=== PATIENT | male | born 1935 | race Caucasian/White ===

== ENCOUNTER 2019-01-30 08:03 | Inpatient (IN) | payer MEDICARE, OTHER ==
[~2019-01-30] VITALS: Ht 180.3 cm; Wt 82.5 kg
[2019-01-30 08:12] VITALS: Ht 180.3 cm; Wt 82.5 kg
[2019-01-30] MEDS ORDERED: PIPER-TAZO 3.375 GM IV (PMX) 100 ML IVPB STA (08:13)
[2019-01-30] MEDS ORDERED: VANCOMYCIN 1 GM (PMX) 250 ML IVPB STA (08:13)
[2019-01-30] MEDS ORDERED: SODIUM CHLORIDE 0.9% 1L BAG IV* STA (08:13)
[2019-01-30] MEDS ORDERED: IBUPROFEN 800 MG TAB PEG ONE (08:30)
[2019-01-30] MEDS ORDERED: ACETAMINOPHEN 650 MG SUPP PR ONE (08:30)
--- NOTE | 2019-01-30 09:44 | ERD ---
ER Documentation Chief Complaint Chief Complaint FROM SNF W/ SOB AND O2 DESATURATION HPI This is an 83-year-old male with a history of dementia esophagitis BPH recently discharged from [facility] after aspiration pneumonia as the patient had accidentally drank Drano. The patient initially was seen at [facility] emergency department on August 23, 2019 the patient underwent an urgent EGD as he had been intubated on arrival. The patient underwent an EGD after he been transferred to [facility] on December 27, 2018 that showed distal trachea and cranial inflammation. He had a endoscopy performed 48 hours later that showed significant improvement and at that time was extubated. He had been sent to a snf facility where he presented to the emergency department today for respiratory distress. The patient was hypoxic satting 80%. Therefore when EMS arrived they placed the patient on a nonrebreather with a nasal trumpet. They stated his pulse ox improved to 90% but he still appeared to have some difficulty breathing. The patient is not currently on antibiotics. He is unable to provide any history due to his dementia and severe respiratory distress. ROS All systems reviewed and are negative except as per history of present illness. Allergies Allergies: Coded Allergies: No Known Allergy (Unverified , 01/30/19) PMhx/Soc History of Surgery: Yes (G-TUBE) Hx Neurological Disorder: Yes (ALZHEIMERS DEMENTIA, ENCEPHALOPATHY) Hx Respiratory Disorders: Yes (PNEUMOTNITIS, ASPIRATION PNEUMONIA) Hx Cardiac Disorders: Yes (CAD, HTN, ) Hx Miscellaneous Medical Probl: Yes (BPH, ESOPHAGITIS, DYSPHAGIA, GASTRITIS W/ BLEEDING) Smoking Status: Unknown if ever smoked Physical Exam Vitals Vital Signs Date Temp Pulse Resp B/P (MAP) Pulse Ox O2 O2 Flow FiO2 Time Delivery Rate 01/30/19 39.2 08:44 01/30/19 39.2 08:44 01/30/19 98 100 08:38 01/30/19 Non 08:30 Rebreathe r 01/30/19 102.5 93 35 179/60 89 08:12 (99) Physical Exam Constitutional:Well-developed. Well-nourished. Patient severe respiratory distress HEENT:Normocephalic. Atraumatic.Pupils were equal round reactive to light. Moist mucous membranes.No tonsillar exudates. Neck: No nuchal rigidity. No lymphadenopathy. No posterior cervical spine tenderness or step-offs. Respiratory: Tachypneic. Using accessory muscles of respiration. Bilateral rhonchi. Cardiovascular: Tachycardic with regular rhythm.No murmurs. No rubs were appreciated.S1, S2 normal. Distal pulses are palpable 2+ bilaterally. GI: Abdomen was soft. Nontender. Non Distended. No pulsatile abdominal masses or bruits. No rebound. No guarding. Bowel sounds were present and normal. G-tube present. Muscle skeletal: No atrophy of the bilateral lower extremities. Patient did not follow verbal command muscular strength was unable to be tested Skin: Warm to the touch. No petechia, no purpura. No lesions on the palms or the soles of the feet. No maculopapular rash. NEURO: Patient opened eyes in response to pain. Does not follow verbal command. Patient withdrew to pain. Gait not observed. Patient mumbling incompressible sounds Result Diagram: 01/30/19 0825 01/30/19 0825 Results 24 hrs Laboratory Tests Test 01/30/19 08:13 01/30/19 08:25 01/30/19 08:27 Blood Gas Specimen Source Blood arterial Arterial Blood Date Drawn 01/30/2019 8:50:36 AM Arterial Blood pH 7.465 (Temp corrected) Arterial Blood pCO2 37.5 mmhg (Temp correct) Arterial Blood pO2 78.2 mmHG (Temp corrected) Arterial Blood HCO3 26.4 mmol/L Arterial Blood Base Excess 2.6 mmol/L Arterial Blood 95.2 mmHG Oxygen Saturation Artemio Test ACCEPTAB Arterial Blood Gas Right Radial Puncture Site Arterial 0.3 % Blood Carboxyhemoglobin Arterial Blood 0.3 % Methemoglobin Blood Gas A-a O2 127.8 mmHg Differential Oxyhemoglobin Percent 94.6 % Blood Gas Temperature 37.0 C Blood Gas Respiration Rate 20.0 Blood Gas Actual 26 Respiration Rate Blood Gas Modality MASK - BIPAP FiO2 35.0 % Blood Gas Tidal Volume 287.0 mL Blood Gas IPAP/EPAP Ratio 15/5 Blood Gas Notified Whom NZ Blood Gas Notified Time 01/30/2019 9:02:29 AM White Blood Count 18.6 10^3/ul Red Blood Count 3.46 10^6/ul Hemoglobin 9.8 g/dl Hematocrit 32.0 % Mean Corpuscular Volume 92.5 fl Mean Corpuscular Hemoglobin 28.3 pg Mean Corpuscular 30.6 g/dl Hemoglobin Concent Red Cell Distribution Width 14.7 % Platelet Count 342 10^3/UL Mean Platelet Volume 11.2 fl Immature Granulocytes % 0.900 % Neutrophils % 84.3 % Lymphocytes % 8.3 % Monocytes % 5.9 % Eosinophils % 0.2 % Basophils % 0.4 % Nucleated Red Blood Cells % 0.0 /100WBC Immature Granulocytes # 0.160 10^3/ul Neutrophils # 15.7 10^3/ul Lymphocytes # 1.6 10^3/ul Monocytes # 1.1 10^3/ul Eosinophils # 0.0 10^3/ul Basophils # 0.1 10^3/ul Nucleated Red Blood Cells # 0.0 10^3/ul Prothrombin Time 15.3 Sec Prothrombin Time Ratio 1.2 INR International 1.20 Normalized Ratio Activated 35.1 Sec Partial Thromboplast Time Sodium Level 145 mmol/L Potassium Level 4.4 mmol/L Chloride Level 106 mmol/L Carbon Dioxide Level 32 mmol/L Anion Gap 7 Blood Urea Nitrogen 23 mg/dl Creatinine 1.12 mg/dl Est Glomerular Filtrat mL/min Rate mL/min Glucose Level 146 mg/dl Calcium Level 8.8 mg/dl Total Bilirubin 0.2 mg/dl Direct Bilirubin 0.00 mg/dl Indirect Bilirubin 0.2 mg/dl Aspartate Amino 35 IU/L Transf (AST/SGOT) Alanine 24 IU/L Aminotransferase (ALT/SGPT) Alkaline Phosphatase 99 IU/L Troponin I 0.055 ng/ml Total Protein 6.2 g/dl Albumin 2.8 g/dl Globulin 3.40 g/dl Albumin/Globulin Ratio 0.82 Amylase Level 75 U/L Lipase 80 U/L POC Venous Lactate 1.6 mmol/L Current Medications Medications Dose Sig/Damien Start Time Status Last (Trade) Ordered Route PRN Stop Time Admin Dose Reason Admin Sodium 2,400 ml BOLUS OVER 2 01/30/19 DC Chloride HOURS STAT 08:13 (NS) IV* 01/30/19 08:17 Vancomycin 250 ml @ ONCE STAT 01/30/19 HCl 125 mls/hr IVPB 08:13 01/30/19 10:12 Piperacillin 100 ml @ ONCE STAT 01/30/19 DC 01/30/19 Sod/ 200 mls/hr IVPB 08:13 08:45 Tazobactam 01/30/19 08:42 Sod 650 mg ONCE ONCE 01/30/19 DC 01/30/19 Acetaminophen [place] 08:30 08:44 (Tylenol 01/30/19 08:31 Supp) Ibuprofen 800 mg ONCE ONCE 01/30/19 DC 01/30/19 (Motrin) PEG 08:30 08:44 01/30/19 08:31 Procedures/MDM The patient presented to the emergency department with dyspnea. My differential diagnosis included but was not limited to upper airway obstruction, CHF, pulmonary embolism, cardiac ischemia, pneumonia, pneumothorax, anemia, drug overdose, pulmonary edema, COPD or asthma. The patient was already on a nonrebreather. He was in severe respiratory distress and at this time the patient was placed on noninvasive mechanical ventilation. The patient was febrile and had Sirs criteria upon arrival. However the patient's lactic acid was within normal limits. The patient's source of infection appear to be result of severe pneumonia as the chest radiograph showed bilateral patchy infiltrates. The infiltrates are more prominent on the right than the left. The patient was given IV vancomycin and Zosyn. 12 Lead EKG tracing ordered and reviewed by myself showed: Normal sinus rhythm of 90 bpm and no arrhythmia. Premature supraventricular complexes [place] interval normal. QRS duration normal. No ST segment elevation No ST segment depression. No changes consistent with acute ischemia. The patient had significant leukocytosis. The patient was given nebulizer treatments of albuterol and Atrovent. The patient appeared to have significant improvement of his respiratory distress after being placed on noninvasive mechanical ventilation. The patient is a full code. The patient will be admitted in serious condition to the hospitalist. I did feel the patient was stable to go to the telemetry service. Critical Care: Time: 70 minutes Treatments/Evaluations: Close monitoring and treatment of unstable vital signs, cardiorespiratory, and neurologic status, while maintaining tight balance of fluid, respiratory, and cardiac interventions. Time does not include performing any of the above billable procedures. Departure Diagnosis: Primary Impression: Aspiration pneumonia Aspiration pneumonia type: unspecified Laterality: bilateral Lung location: lower lobe of lung Qualified Codes: J69.0 - Pneumonitis due to inhalation of food and vomit Additional Impressions: Respiratory distress SIRS (systemic inflammatory response syndrome) Condition: Serious EMILY RAMOS MD Jan 30, 2019 09:44
[2019-01-30] MEDS ORDERED: ONDANSETRON 4 MG INJ IV PRN (10:00)
[2019-01-30] MEDS ORDERED: ACETAMINOPHEN 325 MG TAB PO PRN (10:00)
[2019-01-30] MEDS ORDERED: PANT40TA3 GTB (11:40)
[2019-01-30] MEDS ORDERED: NICO-544 TD (11:41)
[2019-01-30] MEDS ORDERED: ALBU2.5V3 NEB (11:41)
[2019-01-30] MEDS ORDERED: HYDR-3670 GTB (11:42)
[2019-01-30] MEDS ORDERED: NITR0.4T39 SL (11:42)
[2019-01-30] MEDS ORDERED: METR-122 GTB (11:43)
--- NOTE | 2019-01-30 11:47 | HP ---
Date/Time of Note Date/Time of Note DATE: 01/30/19 TIME: 11:35 Assessment/Plan VTE Prophylaxis SCD applied (from Nsg): Yes Pharmacological prophylaxis: heparin Lines/Catheters IV Catheter Type (from Nrsg): PICC Line Central line still needed: Yes Urinary Cath still in place: Yes Reason Cath still needed: urinary retention Assessment/Plan Hospital Course 83 yo male with h/o severe dementia, recent accidental bleach ingestion for which he undergoes serial esophageal dilations at [facility], recurrent aspiration for which he has been intubated twice at [facility], PEG tube who presents with acute respiratory failure from aspiration pneumonia Aspiration pneumonia leading to acute hypoxic respiratory failure, sepsis: - Respiratory status much improved with aggressive nasolaryngeal suctioning, will need to continue this - Vanco/zosyn for sepsis and pneumonia, blood cultures pending - O2 as needed, ok on nasal cannula at this point. BIPAP should be avoided given aspiration and adequately ventilating regardless - BNP is high and JVD elevated, will check TTE. Hold further isotonic fluids. 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 Will consult Dr Perea Discharge: Anticipate a few days in the hospital for abx after which can be discharged to SNF Result Diagram: 01/30/19 0825 01/30/19 0825 Results 24hrs Laboratory Tests Test 01/30/19 08:13 01/30/19 08:25 01/30/19 08:27 01/30/19 08:37 Blood Gas Blood arterial Specimen Source Arterial Blood 01/30/2019 8:50:3 Date Drawn 6 AM Arterial Blood pH 7.465 H (Temp corrected) Arterial Blood 37.5 pCO2 (Temp correct) Arterial Blood 78.2 L pO2 (Temp corrected) Arterial Blood 26.4 H HCO3 Arterial Blood 2.6 Base Excess Arterial Blood 95.2 Oxygen Saturation Artemio Test ACCEPTAB Arterial Blood Right Radial Gas Puncture Site Arterial 0.3 Blood Carboxyhemo globin Arterial Blood 0.3 Methemoglobin Blood Gas A-a O2 127.8 H Differential Oxyhemoglobin 94.6 Percent Blood Gas 37.0 Temperature Blood Gas 20.0 Respiration Rate Blood Gas Actual 26 Respiration Rate Blood Gas MASK - BIPAP Modality FiO2 35.0 Blood Gas Tidal 287.0 Volume Blood Gas 15/5 IPAP/EPAP Ratio Blood Gas NZ Notified Whom Blood Gas 01/30/2019 9:02:2 Notified Time 9 AM White Blood Count 18.6 H Red Blood Count 3.46 L Hemoglobin 9.8 L Hematocrit 32.0 L Mean Corpuscular 92.5 Volume Mean Corpuscular 28.3 L Hemoglobin Mean Corpuscular 30.6 L Hemoglobin Concen t Red Cell 14.7 H Distribution Width Platelet Count 342 Mean Platelet 11.2 H Volume Immature 0.900 H Granulocytes % Neutrophils % 84.3 H Lymphocytes % 8.3 L Monocytes % 5.9 Eosinophils % 0.2 Basophils % 0.4 Nucleated Red 0.0 Blood Cells % Immature 0.160 H Granulocytes # Neutrophils # 15.7 H Lymphocytes # 1.6 Monocytes # 1.1 H Eosinophils # 0.0 Basophils # 0.1 Nucleated Red 0.0 Blood Cells # Prothrombin Time 15.3 H Prothrombin Time 1.2 Ratio INR International 1.20 Normalized Ratio Activated 35.1 H Partial Thrombopl ast Time Sodium Level 145 H Potassium Level 4.4 Chloride Level 106 Carbon Dioxide 32 H Level Anion Gap 7 Blood Urea 23 H Nitrogen Creatinine 1.12 Est Glomerular Filtrat Rate mL/min Glucose Level 146 Calcium Level 8.8 Total Bilirubin 0.2 Direct Bilirubin 0.00 Indirect 0.2 Bilirubin Aspartate Amino 35 Transf (AST/SGOT) Alanine 24 Aminotransferase (ALT/SGPT) Alkaline 99 Phosphatase Troponin I 0.055 Total Protein 6.2 Albumin 2.8 L Globulin 3.40 H Albumin/Globulin 0.82 Ratio Amylase Level 75 Lipase 80 POC Venous 1.6 Lactate B-Type 2940 H Natriuretic Peptide HPI/ROS Admit Date/Time Admit Date/Time Hx of Present Illness 83 yo male with dementia brought in for hypoxia Patient with dementia at baseline. Apparently suffered an esophageal injury as a result of accidental bleach ingestion. He has been hosptialized repeatedly with complications of this. He is undergoing serial esophageal dilation procedures at [facility]. He is being fed via PEG tube now. He has been hosptialized at [facility] numerous times for aspiration pneumonias, under the care of Dr Vaca. Currently is a resident of [facility] where he was found to be hypoxic with labored breathing, so was sent here. On arrival he was febrile and tachypnenic. He was started on broad spectrum antibiotics and given bipap I removed the bipap mask and he is audibly gurgling secretions. His O2 saturation dropped to low 80s on RA. With aggressive suctioning, large amounts of sputum was expectorated. His work of breathing improved markedly and saturations improved to 90s. His daughter and came to bedside. They say he is demented at baseline but a few months ago was interactive and could ambulate. Since his hospitalizations over past months he has declined markedly. I discussed code status, they are open to discussion of DNR/DNI but are not ready to make that decision yet. He has been intubated twice in past months. They are wanting to hear more about possible hospice care however. ROS Constitutional: no complaints, improved Eyes: no complaints ENT: no complaints Respiratory: no complaints Cardiovascular: no complaints Gastrointestinal: no complaints Genitourinary: no complaints Musculoskeletal: no complaints Skin: no complaints Neurologic: no complaints Endocrine: no complaints Lymphatic: no complaints Psychological: no complaints, nl mood/affect Immunologic: no complaints PMH/Family/Social Past Medical History Dementia Esophageal injury Aspiration pneumonias Medications Current Medications Ondansetron HCl (Zofran Inj) 4 mg ER BRIDGE PRN IV NAUSEA/VOMITING; Start 01/30/19 at 10:00; Stop 01/31/19 at 09:59 Acetaminophen (Tylenol Tab) 650 mg ER BRIDGE PRN PO .MILD PAIN 1-3 OR TEMP; Start 01/30/19 at 10:00; Stop 01/31/19 at 09:59 Coded Allergies: No Known Allergy (Unverified , 01/30/19) Past Surgical History Past Surgical Hx: no surgical history Family History Significant Family History: no pertinent family hx Social History Alcohol Use: none Smoking Status: Unknown if ever smoked Drug Use: none Exam/Review of Systems Vital Signs Vitals Vital Signs Date Temp Pulse Resp B/P (MAP) Pulse Ox O2 O2 Flow FiO2 Time Delivery Rate 01/30/19 39.2 08:44 01/30/19 98 100 08:38 01/30/19 Non 08:30 Rebreather 01/30/19 35 179/60 08:12 (99) Exam Exam Dementia, nonverbal Spontaneous movement x 4 Reacts to noxious stimuli Tachypneic with neck retractions, audbily gurgling secretions Rhoncourous bilateraly + JVD Tachy, regular Abdomen soft nt, PEG tube Ext warm without edema EDE MARTÍNEZ MD Jan 30, 2019 11:45
[2019-01-30] MEDS ORDERED: NACL 0.9% 3 ML SYG IV SCH (12:00)
[2019-01-30] MEDS ORDERED: VANCOMYCIN IV PER PHARMACY XX SCH (12:00)
[2019-01-30] MEDS ORDERED: VANCOMYCIN 500 MG (PMX) 100 ML IVPB ONE (13:00)
[2019-01-30] MEDS: PIPER-TAZO 3.375 GM IV (PMX) 100 ML IVPB SCH ×2 (14:39→22:46)
[2019-01-30] MEDS ORDERED: IPRATROPIUM (NEB) 0.5 MG/2.5 ML AMP INH STA (15:04)
[2019-01-30] MEDS ORDERED: ALBUTEROL 0.5% (NEB) 2.5 MG/0.5 ML AMP INH STA (15:04)
[2019-01-30] MEDS ORDERED: ATROPINE 1 MG/10 ML SYRINGE IV PRN (16:00)
[2019-01-30 18:06] VITALS: PULSE 80
[2019-01-30 18:10] VITALS: BP 178/77; PULSE 52; RESP 19
[2019-01-30] MEDS ORDERED: PENDING SANTYL ORDER FOR WOUND CARE XX PRN (18:30)
[2019-01-30] MEDS: hydrALAzine 20 MG INJ IV PRN (18:34)
[2019-01-30 18:37] VITALS: PULSE 37
--- NOTE | 2019-01-30 18:39 | CONS ---
DATE OF ADMISSION: 01/30/2019 DATE OF CONSULTATION: 01/30/2019 TYPE OF CONSULTATION: Cardiology. REASON FOR CONSULTATION: Bradycardia. REQUESTING PHYSICIAN: hEsan Chery MD HISTORY OF PRESENT ILLNESS: Mr. 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 The patient has been sent from halfway facility and arrived on nonrebreather. The patient upon arrival required initiation of BiPAP and was started on antibiotics. The patient's initial vital signs on em ergency department, temperature of 102.5, blood pressure 110/60, pulse 93, respiratory rate 35, satti ng 89%. The patient's labs revealed a white blood cell count of 18.6, hemoglobin 9.8, platelet count of 342, sodium 145, potassium 4.4, creatinine 1.1, BUN 23. Troponin negative. BNP of 2940. ABG re vealing a pH of 7.465, a PaO2 of 78 and pCO2 of 37. UA negative. The patient underwent a chest x-ra y revealing patchy bibasilar infiltrates and small bilateral effusions, right greater than left. The patient's initial electrocardiogram revealed sinus rhythm at a rate of 90 with frequent PACs, border line lateral Q's, nonspecific ST-T wave abnormalities. The patient subsequently remains in the ER at this time and has been treated with bronchodilators, broad spectrum antibiotics and continued on IV fluid hydration. The patient then noted to have the onset of bradyarrhythmia down to the 30s, EKG co nsistent with ectopic atrial bradycardia versus sinus bradycardia. Per report, the patient is having increased heart rate once again after coughing and clearing his throat and there is concern for poss ible primary hypoxic event leading to bradycardia. Since this time, the patient has had recurrent br adycardias at this time with clearing of throat improved and has received 1 dose of atropine. PAST MEDICAL HISTORY: As above in HPI. MEDICATIONS CURRENTLY IN HOSPITAL: 1. Vancomycin. 2. Protonix. 3. Lovenox. 4. Aspirin p.r.n. 5. Zosyn. 6. Zofran. 7. Tylenol. ALLERGIES: NO KNOWN DRUG ALLERGIES. SOCIAL HISTORY: No current tobacco, EtOH or illicit drug use. FAMILY HISTORY: No history of sudden cardiac or early CAD. REVIEW OF SYSTEMS: As above in HPI. CONSTITUTIONAL: No fevers, chills. PULMONARY: Respiratory compromise, signs of respiratory distress at times somewhat improved currentl y. GASTROINTESTINAL: Dysphagia status post G-tube. GENITOURINARY: No hematuria. MUSCULOSKELETAL: Degenerative joint disease. PSYCHIATRIC: No documented psych history. NEUROLOGIC: Dementia. PHYSICAL EXAMINATION: VITAL SIGNS: Temperature 98.5, blood pressure 167/57, pulse 81, respirations 19, satting 100% on 3 l iters. GENERAL: The patient is sleeping, altered but difficult to arouse. HEENT: Face mask in place. CHEST: Upper airway transmitted rhonchus sounds. HEART: Regular rate and rhythm. Normal S1, S2, I/ systolic murmur. ABDOMEN: Positive bowel sounds. Soft, positive G-tube. EXTREMITIES: No significant pitting edema, 1+ pulses bilateral posterior tibial. LABORATORY DATA: As above in HPI. No further labs for my review at this time. IMAGING STUDIES: As above in HPI. No further imaging studies for my review at this time. Chest x-r ay as above in HPI. ELECTROCARDIOGRAM: As above in HPI. No further electrocardiogram for my review at this time. IMPRESSION: 1. Bradycardia with the recurrent episodes of sinus bradycardia in a patient with respiratory compro mise. There is concern for primary pulmonary etiology to the patient's bradycardia with hypoxic even ts versus primary cardiac etiology such as this had to be sick sinus syndrome. 2. Abnormal electrocardiogram to lateral Q's, assess for acute coronary syndrome. 3. Hypertension, currently controlled at this time, mildly. 4. Altered mental state, status post encephalopathy. 5. Baseline dementia. 6. Respiratory distress. 7. Pneumonia. 8. History of esophagitis from injury secondary to toxic ingestion. 9. Hypernatremia. 10. Leukocytosis. 11. Anemia. RECOMMENDATIONS: 1. At this time, we would admit the patient to telemetry under ICU. 2. We would have very close followup the patient's respiratory status with possible need for high le cindy respiratory support such as BiPAP and we would have frequent suctioning, possible need for intuba tion. 3. We would have respiratory therapy the patient. 4. We will continue to follow the patient's heart rate closely on monitoring. 5. We would check serial EKGs to assess for ongoing changes. 6. We will complete a rule out for myocardial infarction to ensure the patient's coughing symptoms a re not result of and not result in acute coronary syndrome such as acute myocardial infarction. 7. We will refrain from any aleena agents. 8. We will give patient IV push p.r.n. hydralazine for significant elevated systolic blood pressures . 9. We will check a 2D echo to further assess the patient's ejection fraction, wall motion or major v alve abnormalities. 10. Check a TSH to be ensure subclinical hypothyroidism is not contributing to any bouts of bradyarr hythmias. 11. Continue the patient's antibiotics and follow up all culture data. Thank you for allowing me to take part in the care of this patient. I will continue to follow him ve ry closely with you with further recommendations to be made as the [facility]. Dictated By: RAUL ADLER/GURDEEP Conf#: [id number] DID#: [id number] CC: JASSI ANGULO MD; EHSAN CHERY MD;*End*
[2019-01-30 20:00] VITALS: BP 141/62; PULSE 69; PULSE 75; RESP 18
[2019-01-30] MEDS: ALBUTEROL/IPRATROPIUM (NEB) 3 ML AMP HHN PRN (21:46)
[2019-01-31] VITALS (9 sets, daily range): BP systolic 119–174; BP diastolic 61–73; PULSE 53–102; RESP 18–19
[2019-01-31] MEDS: PIPER-TAZO 3.375 GM IV (PMX) 100 ML IVPB SCH ×3 (06:32→20:31)
--- NOTE | 2019-01-31 08:51 | CONS ---
Assessment/Plan Assessment/Plan Assessment/Plan (Daily) Upset of family conference this morning on January 31, 2019 family members did arrive after we called them both sisters there is a brother his not available and there is a boyfriend who is not available. The 2 daughters on the phone right now with the brother it is clear that patient made a decision that she would not want to live in a moribund condition for prolonged period of time on a ventilator she has no chance of recovery. I did tell family members that she is critically ill right now on 3 blood pressure medications to sustain her life she is on the ventilator requiring multiple different antibiotics that she has intra-abdominal abscess which is being treated aggressively and multiple different subspecialties consultants involved with her care. The voice for the family are the 2 daughters they have a clear understanding of how seriously ill she is there are hopes that she does not suffer acceptable quality of life as patient stated states before she became ill is not to prolong her life if she has no quality of life patient's family are spiritual to have parag but they do not want her to suffer medication preferences are 1-1 physical exam as noted above impressions patient has a very poor prognosis and if she does survive still has an underlying serious medical illness. This time goals of care are to continue with her current level of care estimated prognosis is extremely low palliative performance scale 1 they now have a clear understanding pain and symptom management was explained to family members and that we will not let her suffering. All psychological issues social issues and once again patient did not want to live on life support. CODE STATUS is addressed with family members did not ask them to discontinue care or change to chemical code or any such a cresencio but to consider just changing her code to DO NOT RESUSCITATE. Once again the currently on a phone with a brother who has not been involved with her health care. But I made it very clear to them that they are the decision makers for my mother's health care and that mother has expressed before she did not want to remain in a moribund condition. Consultation Date/Type/Reason Admit Date/Time Date/Time of Note DATE: 01/31/19 TIME: 08:46 Past Medical History Home Meds Reported Medications Hydralazine Hcl* (Hydralazine Hcl*) 10 Mg Tablet, 10 MG GTB Q6H PRN for HTN, #60 TAB 01/30/19 Nitroglycerin* (Nitrostat*) 0.4 Mg Tab.subl, 0.4 MG SL Q5MIN PRN for CHEST PAIN, BOTTLE 01/30/19 Albuterol Sulfate* (Albuterol Sulfate* Neb) 0.083%-3 Ml Neb, 2.5 MG NEB Q4H PRN for WHEEZING AND SOB, #30 VIAL 01/30/19 Nicotine* (Nicotine* Patch) Unknown Strength Patch, 1 PATCH TD DAILY, PATCH 14MG 01/30/19 Pantoprazole* (Protonix*) 40 Mg Tablet.dr, 40 MG GTB DAILY, TAB 01/30/19 Discontinued Reported Medications Metronidazole* (Metronidazole*) 500 Mg Tablet, 500 MG GTB Q8, TAB 01/30/19 Medications Current Medications Ondansetron HCl (Zofran Inj) 4 mg ER BRIDGE PRN IV NAUSEA/VOMITING; Start 01/30/19 at 10:00; Stop 01/31/19 at 09:59 Acetaminophen (Tylenol Tab) 650 mg ER BRIDGE PRN PO .MILD PAIN 1-3 OR TEMP; Start 01/30/19 at 10:00; Stop 01/31/19 at 09:59 Vancomycin HCl (Vanco Iv Per Pharmacy) VANCOMYCIN PER PHARMACY PER PROTOCOL XX ; Start 01/30/19 at 12:00 Piperacillin Sod/ Tazobactam Sod 100 ml @ 200 mls/hr Q8 IVPB Last administered on 01/31/19at 06:32; Admin Dose 200 MLS/HR; Start 01/30/19 at 14:00 Pantoprazole (Protonix Tab) 40 mg DAILY PO ; Start 01/31/19 at 09:00 IV Flush (NS 3 ml) 3 ml PER PROTOCOL IV ; Start 01/30/19 at 12:00 Enoxaparin Sodium (Lovenox) 30 mg DAILY SC ; Start 01/31/19 at 09:00 Vancomycin HCl 1.25 gm/Sodium Chloride 250 ml @ 83.333 mls/ hr Q24H IVPB ; Start 01/31/19 at 13:00 Atropine Sulfate (Atropine (Syringe)) 0.4 mg Q15M PRN IV bradycardia < 30 BPM Last administered on 01/30/19at 16:33; Admin Dose 0.4 MG; Start 01/30/19 at 16:00 Hydralazine HCl (Apresoline) 10 mg Q4H PRN IV SBP>170 Last administered on 01/30/19at 18:34; Admin Dose 10 MG; Start 01/30/19 at 17:30 Miscellaneous Information (Pending [facility] Order For Wound Care) This patient mccann... PRN PRN XX WOUND CARE; Start 01/30/19 at 18:30 Albuterol/ Ipratropium (Duoneb) 3 ml Q4H RESP THERAPY PRN HHN SHORTNESS OF BREATH Last administered on 01/30/19at 21:46; Admin Dose 3 ML; Start 01/30/19 at 21:00 Allergies: Coded Allergies: No Known Allergy (Unverified , 01/30/19) Past Surgical History Past Surgical Hx: no surgical history Social History Alcohol Use: none Smoking Status: Unknown if ever smoked Drug Use: none Exam/Review of Systems Exam Vitals Vital Signs Date Temp Pulse Resp B/P (MAP) Pulse Ox O2 O2 Flow FiO2 Time Delivery Rate 01/31/19 99.0 18 119/61 94 07:38 (80) 01/31/19 4.0 05:49 01/31/19 68 04:00 01/31/19 Nasal 02:53 Cannula Intake and Output 01/30/19 01/30/19 01/31/19 1515:00 23:00 07:00 IntakeIntake Total 100 ml OutputOutput Total 1400 ml BalanceBalance -1300 ml Results Result Diagram: 01/31/19 0608 01/31/19 0608 Results 24hrs Laboratory Tests Test 01/30/19 13:46 01/30/19 15:00 01/30/19 18:55 01/31/19 00:33 Lactic Acid Level 1.4 Urine Color YELLOW Urine Clarity SLIGHTLY CLOUDY A Urine pH 7.0 Urine Specific 1.016 [place] Urine Ketones NEGATIVE Urine Nitrite NEGATIVE Urine Bilirubin NEGATIVE Urine NEGATIVE Urobilinogen Urine Leukocyte NEGATIVE Esterase Urine Microscopic 6 H RBC Urine Microscopic 1 WBC Urine Hemoglobin NEGATIVE Urine Glucose NEGATIVE Urine Total NEGATIVE Protein Troponin I 0.051 0.051 Test 01/31/19 06:08 01/31/19 06:09 White Blood Count 12.4 #H Red Blood Count 3.24 L Hemoglobin 9.1 L Hematocrit 30.0 L Mean Corpuscular 92.6 Volume Mean Corpuscular 28.1 L Hemoglobin Mean Corpuscular 30.3 L Hemoglobin Concen t Red Cell 15.0 H Distribution Width Platelet Count 276 Mean Platelet 11.2 H Volume Immature 0.600 H Granulocytes % Neutrophils % 75.9 Lymphocytes % 16.5 Monocytes % 5.8 Eosinophils % 0.9 Basophils % 0.3 Nucleated Red 0.0 Blood Cells % Immature 0.080 H Granulocytes # Neutrophils # 9.4 H Lymphocytes # 2.0 Monocytes # 0.7 Eosinophils # 0.1 Basophils # 0.0 Nucleated Red 0.0 Blood Cells # Sodium Level 145 H Potassium Level 4.1 Chloride Level 110 Carbon Dioxide 30 Level Anion Gap 5 Blood Urea 23 H Nitrogen Creatinine 0.95 Est Glomerular Filtrat Rate mL/min Glucose Level 90 # Hemoglobin A1c 5.5 Calcium Level 8.5 Total Bilirubin 0.3 Direct Bilirubin 0.00 Indirect 0.3 Bilirubin Aspartate Amino 32 Transf (AST/SGOT) Alanine 28 Aminotransferase (ALT/SGPT) Alkaline 75 Phosphatase Total Protein 5.6 L Albumin 2.5 L Globulin 3.10 Albumin/Globulin 0.80 Ratio Triglycerides 74 Level Cholesterol Level 60 L LDL Cholesterol, 26 Calculated HDL Cholesterol 19 L Cholesterol/HDL 3.1 Ratio Troponin I 0.055 Medications Medication Current Medications Ondansetron HCl (Zofran Inj) 4 mg ER BRIDGE PRN IV NAUSEA/VOMITING; Start 01/30/19 at 10:00; Stop 01/31/19 at 09:59 Acetaminophen (Tylenol Tab) 650 mg ER BRIDGE PRN PO .MILD PAIN 1-3 OR TEMP; Start 01/30/19 at 10:00; Stop 01/31/19 at 09:59 Vancomycin HCl (Vanco Iv Per Pharmacy) VANCOMYCIN PER PHARMACY PER PROTOCOL XX ; Start 01/30/19 at 12:00 Piperacillin Sod/ Tazobactam Sod 100 ml @ 200 mls/hr Q8 IVPB Last administered on 01/31/19at 06:32; Admin Dose 200 MLS/HR; Start 01/30/19 at 14:00 Pantoprazole (Protonix Tab) 40 mg DAILY PO ; Start 01/31/19 at 09:00 IV Flush (NS 3 ml) 3 ml PER PROTOCOL IV ; Start 01/30/19 at 12:00 Enoxaparin Sodium (Lovenox) 30 mg DAILY SC ; Start 01/31/19 at 09:00 Vancomycin HCl 1.25 gm/Sodium Chloride 250 ml @ 83.333 mls/ hr Q24H IVPB ; Start 01/31/19 at 13:00 Atropine Sulfate (Atropine (Syringe)) 0.4 mg Q15M PRN IV bradycardia < 30 BPM Last administered on 01/30/19at 16:33; Admin Dose 0.4 MG; Start 01/30/19 at 16:00 Hydralazine HCl (Apresoline) 10 mg Q4H PRN IV SBP>170 Last administered on 01/30/19 18:34; Admin Dose 10 MG; Start 01/30/19 at 17:30 Miscellaneous Information [facility] This patient mccann... PRN PRN XX WOUND CARE; Start 01/30/19 at 18:30 Albuterol/ Ipratropium (Duoneb) 3 ml Q4H RESP THERAPY PRN HHN SHORTNESS OF BREATH Last administered on 01/30/19at 21:46; Admin Dose 3 ML; Start 01/30/19 at 21:00 JASSI ANGULO Jan 31, 2019 08:50
[2019-01-31] MEDS: PANTOPRAZOLE (EC) 40 MG TAB PO SCH (09:17)
[2019-01-31] MEDS: ENOXAPARIN 30 MG/0.3 ML SYG SC SCH (09:22)
--- NOTE | 2019-01-31 12:48 | CONS ---
DATE OF ADMISSION: 01/30/2019 DATE OF CONSULTATION: 01/31/2019 REASON FOR CONSULTATION: Shortness of breath. Thank you, Dr. Chery, for this consultation. HISTORY OF PRESENT ILLNESS: This is an unfortunate 83-year-old gentleman with a history of severe de mentia, esophageal strictures requiring frequent dilatation and recurrent aspiration, presents with i ncreasing shortness of breath, orthopnea, PND, likely aspiration pneumonia. He is a poor historian, came in from ED yesterday with increasing respiratory distress as stated, and hypoxemia requiring pul monary toilet. Now transferred to telemetry floor where family are expressing a wish to discuss poss ible palliative options. PAST MEDICAL HISTORY: As above. MEDICATIONS: Per chart. ALLERGIES: None. SOCIAL HISTORY: He is a nonsmoker, no alcohol, no history of drug use. FAMILY HISTORY: Noncontributory. SYSTEMS REVIEW: A 12-point review of systems currently unable to perform. PHYSICAL EXAMINATION: GENERAL: Elderly-appearing gentleman in mild respiratory distress. VITAL SIGNS: Currently afebrile, pulse is 70, blood pressure 155/70, O2 saturation 94% on 3 L nasal cannula. NECK: Supple, no JVD or lymphadenopathy. CARDIAC: S1, S2, no added sounds or murmurs. CHEST: Diminished air entry bilaterally. ABDOMEN: Soft, nontender. No guarding or rebound. EXTREMITIES: No cyanosis, clubbing or edema. NEUROLOGIC: Generalized weakness. LABORATORY DATA: White count initially 18.6, now 12.4, hemoglobin 9.1, platelets 276. BUN 23, creat inine 0.95, PaO2 on BiPAP was 78. DIAGNOSTIC DATA: Chest x-ray was reviewed, demonstrated patchy infiltrates, right side greater than left. IMPRESSION AND PLAN: 1. Likely recurrent aspiration pneumonia from esophageal strictures from prior history of bleach ing estion. 2. Advanced dementia. 3. Failure to thrive. The patient will require: 1. Continue current antibiotics of vancomycin and Zosyn. 2. Aspiration precautions. 3. Agree with palliative consult with family regarding goals of care. Dictated By: DOMENIC BLACKBURN MD SV/NTS Conf#: [id number] DID#: [id number] CC: EDE CHERY MD;*EndCC*
--- NOTE | 2019-01-31 14:07 | CONS ---
Assessment/Plan Assessment/Plan Hospital Course (Demo Recall) IMPRESSION: 1. Bradycardia with the recurrent episodes of sinus bradycardia in a patient with respiratory compromise. There is concern for primary pulmonary etiology to the patient's bradycardia with hypoxic events versus primary cardiac etiology such as this had to be sick sinus syndrome.- patient had some recurrent bardy when first arrived to tele floor overnight and now has nasal trumpet and has not had recurrent jaime since 2. Abnormal electrocardiogram to lateral Q's, assess for acute coronary syndrome.-neg trop x 3 3. Hypertension, currently controlled at this time, mildly. 4. Altered mental state, status post encephalopathy. 5. Baseline dementia. 6. Respiratory distress. 7. Pneumonia. 8. History of esophagitis from injury secondary to toxic ingestion. 9. Hypernatremia. 10. Leukocytosis. 11. Anemia. Recc: -Tele -Follow rhythm/rate closely -no aleena agents -Follow resp status clsoely -Contineu abx's/bronchodilators -asp precautions/frequent pulmonary toilet -will f/u echo -check TSH Consultation Date/Type/Reason Admit Date/Time Jan 30, 2019 at 09:43 Initial Consult Date 01/30/19 Type of Consult Cardiology Reason for Consultation bradycardia Requesting Provider: EDE MARTÍNEZ MD Date/Time of Note DATE: 01/31/19 TIME: 14:03 Exam/Review of Systems Vital Signs Vitals Vital Signs Date Temp Pulse Resp B/P (MAP) Pulse Ox O2 O2 Flow FiO2 Time Delivery Rate 01/31/19 4.0 13:45 01/31/19 98.0 70 18 155/70 94 11:36 (98) 01/31/19 Nasal 07:57 Cannula Intake and Output 01/30/19 01/30/19 01/31/19 1414:59 22:59 06:59 IntakeIntake Total 100 ml OutputOutput Total 1400 ml BalanceBalance -1300 ml Exam Exam Review of Systems: CONSTITUTIONAL: No fevers, chills. PULMONARY: No sob CARDIOVASCULAR: No chest pain/palpitations GASTROINTESTINAL: No nausea/vomiting. GENITOURINARY: No hematuria/dysuria. MUSCULOSKELETAL: No myagias/arthalgias. PSYCHIATRIC: The patient denies depression. NEUROLOGIC: No weakness Constitutional: alert Psych: no complaints, confusion ENMT: mucosa pink and moist Neck: supple, jvd Respiratory: crackles/rales Cardiovascular: regular rate and rhythm Gastrointestinal: soft, non-tender Musculoskeletal: muscle weakness (mild generalized) Extremities: edema (none) Neurological: focal weakness (none) Labs Result Diagram: 01/31/19 0608 01/31/19 0608 Results 24hrs Laboratory Tests Test 01/30/19 15:00 01/30/19 18:55 01/31/19 00:33 01/31/19 06:08 Urine Color YELLOW Urine Clarity SLIGHTLY CLOUDY A Urine pH 7.0 Urine Specific 1.016 [place] Urine Ketones NEGATIVE Urine Nitrite NEGATIVE Urine Bilirubin NEGATIVE Urine NEGATIVE Urobilinogen Urine Leukocyte NEGATIVE Esterase Urine Microscopic 6 H RBC Urine Microscopic 1 WBC Urine Hemoglobin NEGATIVE Urine Glucose NEGATIVE Urine Total NEGATIVE Protein Troponin I 0.051 0.051 White Blood Count 12.4 #H Red Blood Count 3.24 L Hemoglobin 9.1 L Hematocrit 30.0 L Mean Corpuscular 92.6 Volume Mean Corpuscular 28.1 L Hemoglobin Mean Corpuscular 30.3 L Hemoglobin Concen t Red Cell 15.0 H Distribution Width Platelet Count 276 Mean Platelet 11.2 H Volume Immature 0.600 H Granulocytes % Neutrophils % 75.9 Lymphocytes % 16.5 Monocytes % 5.8 Eosinophils % 0.9 Basophils % 0.3 Nucleated Red 0.0 Blood Cells % Immature 0.080 H Granulocytes # Neutrophils # 9.4 H Lymphocytes # 2.0 Monocytes # 0.7 Eosinophils # 0.1 Basophils # 0.0 Nucleated Red 0.0 Blood Cells # Sodium Level 145 H Potassium Level 4.1 Chloride Level 110 Carbon Dioxide 30 Level Anion Gap 5 Blood Urea 23 H Nitrogen Creatinine 0.95 Est Glomerular Filtrat Rate mL/min Glucose Level 90 # Hemoglobin A1c 5.5 Calcium Level 8.5 Total Bilirubin 0.3 Direct Bilirubin 0.00 Indirect 0.3 Bilirubin Aspartate Amino 32 Transf (AST/SGOT) Alanine 28 Aminotransferase (ALT/SGPT) Alkaline 75 Phosphatase Total Protein 5.6 L Albumin 2.5 L Globulin 3.10 Albumin/Globulin 0.80 Ratio Triglycerides 74 Level Cholesterol Level 60 L LDL Cholesterol, 26 Calculated HDL Cholesterol 19 L Cholesterol/HDL 3.1 Ratio Test 01/31/19 06:09 Troponin I 0.055 Medications Medications Current Medications Vancomycin HCl (Vanco Iv Per Pharmacy) VANCOMYCIN PER PHARMACY PER PROTOCOL XX ; Start 01/30/19 at 12:00 Piperacillin Sod/ Tazobactam Sod 100 ml @ 200 mls/hr Q8 IVPB Last administered on 01/31/19 13:09; Admin Dose 200 MLS/HR; Start 01/30/19 at 14:00 Pantoprazole (Protonix Tab) 40 mg DAILY PO Last administered on 01/31/19 09:17; Admin Dose 40 MG; Start 01/31/19 at 09:00 IV Flush (NS 3 ml) 3 ml PER PROTOCOL IV ; Start 01/30/19 at 12:00 Enoxaparin Sodium (Lovenox) 30 mg DAILY SC Last administered on 01/31/19 09:22; Admin Dose 30 MG; Start 01/31/19 at 09:00 Vancomycin HCl 1.25 gm/Sodium Chloride 250 ml @ 83.333 mls/ hr Q24H IVPB ; Start 01/31/19 at 13:00 Atropine Sulfate (Atropine (Syringe)) 0.4 mg Q15M PRN IV bradycardia < 30 BPM Last administered on 01/30/19 16:33; Admin Dose 0.4 MG; Start 01/30/19 at 16:00 Hydralazine HCl (Apresoline) 10 mg Q4H PRN IV SBP>170 Last administered on 01/30/19 18:34; Admin Dose 10 MG; Start 01/30/19 at 17:30 Miscellaneous Information (Pending [facility] Order For Wound Care) This patient mccann... PRN PRN XX WOUND CARE; Start 01/30/19 at 18:30 Albuterol/ Ipratropium (Duoneb) 3 ml Q4H RESP THERAPY PRN HHN SHORTNESS OF BREATH Last administered on 01/30/19at 21:46; Admin Dose 3 ML; Start 01/30/19 at 21:00 RAUL US Jan 31, 2019 14:07
[2019-01-31] MEDS: VANCOMYCIN HCL 1.25 GM in SOD CHLORIDE 0.9% 250 ML IVPB SCH (14:29)
--- NOTE | 2019-01-31 17:29 | PN ---
Date/Time of Note Date/Time of Note DATE: 01/31/19 TIME: 17:22 Assessment/Plan VTE Prophylaxis Risk score (from Nsg)>0 risk: 7 Pharmacological prophylaxis: LMWH Assessment/Plan Hospital Course 83 yo male with h/o severe dementia, recent accidental bleach ingestion for which he undergoes serial esophageal dilations at [facility], recurrent aspiration for which he has been intubated twice at [facility], PEG tube who presents with acute respiratory failure from aspiration pneumonia Respiratory failure secondary to fluid overload and aspiration pneumonia - Respiratory status much improved with aggressive suctioning - Vanco/zosyn for sepsis and pneumonia, blood cultures pending - O2 as needed, ok on nasal cannula at this point. 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 Consultation with Dr Perea appreciated Prophylaxis: Lovenox Discharge: Anticipate a few days in the hospital for abx after which can be discharged to SNF Result Diagram: 01/31/19 0608 01/31/19 0608 Results 24hrs Laboratory Tests Test 01/30/19 18:55 01/31/19 00:33 01/31/19 06:08 01/31/19 06:09 Troponin I 0.051 0.051 0.055 White Blood Count 12.4 #H Red Blood Count 3.24 L Hemoglobin 9.1 L Hematocrit 30.0 L Mean Corpuscular 92.6 Volume Mean Corpuscular 28.1 L Hemoglobin Mean Corpuscular 30.3 L Hemoglobin Concent Red Cell 15.0 H Distribution Width Platelet Count 276 Mean Platelet Volume 11.2 H Immature 0.600 H Granulocytes % Neutrophils % 75.9 Lymphocytes % 16.5 Monocytes % 5.8 Eosinophils % 0.9 Basophils % 0.3 Nucleated Red Blood 0.0 Cells % Immature 0.080 H Granulocytes # Neutrophils # 9.4 H Lymphocytes # 2.0 Monocytes # 0.7 Eosinophils # 0.1 Basophils # 0.0 Nucleated Red Blood 0.0 Cells # Sodium Level 145 H Potassium Level 4.1 Chloride Level 110 Carbon Dioxide Level 30 Anion Gap 5 Blood Urea Nitrogen 23 H Creatinine 0.95 Est Glomerular Filtrat Rate mL/min Glucose Level 90 # Hemoglobin A1c 5.5 Calcium Level 8.5 Total Bilirubin 0.3 Direct Bilirubin 0.00 Indirect Bilirubin 0.3 Aspartate Amino 32 Transf (AST/SGOT) Alanine 28 Aminotransferase (AL T/SGPT) Alkaline Phosphatase 75 Total Protein 5.6 L Albumin 2.5 L Globulin 3.10 Albumin/Globulin 0.80 Ratio Triglycerides Level 74 Cholesterol Level 60 L LDL Cholesterol, 26 Calculated HDL Cholesterol 19 L Cholesterol/HDL 3.1 Ratio Thyroid Stimulating 3.240 Hormone (TSH) Subjective 24 Hr Interval Summary Subjective hx not possible: pt non-verbal Exam/Review of Systems Exam Vitals Vital Signs Date Temp Pulse Resp B/P (MAP) Pulse Ox O2 O2 Flow FiO2 Time Delivery Rate 01/31/19 98.1 61 19 174/73 95 15:51 (106) 01/31/19 4.0 13:45 01/31/19 Nasal 07:57 Cannula Intake and Output 01/30/19 01/30/19 01/31/19 1515:00 23:00 07:00 IntakeIntake Total 100 ml OutputOutput Total 1400 ml BalanceBalance -1300 ml Constitutional: non-verbal Respiratory: clear to auscultation Cardiovascular: regular rate and rhythm Gastrointestinal: soft; No distended Musculoskeletal: nl extremities to inspection Results Results 24hrs Laboratory Tests Test 01/30/19 18:55 01/31/19 00:33 01/31/19 06:08 01/31/19 06:09 Troponin I 0.051 0.051 0.055 White Blood Count 12.4 #H Red Blood Count 3.24 L Hemoglobin 9.1 L Hematocrit 30.0 L Mean Corpuscular 92.6 Volume Mean Corpuscular 28.1 L Hemoglobin Mean Corpuscular 30.3 L Hemoglobin Concent Red Cell 15.0 H Distribution Width Platelet Count 276 Mean Platelet Volume 11.2 H Immature 0.600 H Granulocytes % Neutrophils % 75.9 Lymphocytes % 16.5 Monocytes % 5.8 Eosinophils % 0.9 Basophils % 0.3 Nucleated Red Blood 0.0 Cells % Immature 0.080 H Granulocytes # Neutrophils # 9.4 H Lymphocytes # 2.0 Monocytes # 0.7 Eosinophils # 0.1 Basophils # 0.0 Nucleated Red Blood 0.0 Cells # Sodium Level 145 H Potassium Level 4.1 Chloride Level 110 Carbon Dioxide Level 30 Anion Gap 5 Blood Urea Nitrogen 23 H Creatinine 0.95 Est Glomerular Filtrat Rate mL/min Glucose Level 90 # Hemoglobin A1c 5.5 Calcium Level 8.5 Total Bilirubin 0.3 Direct Bilirubin 0.00 Indirect Bilirubin 0.3 Aspartate Amino 32 Transf (AST/SGOT) Alanine 28 Aminotransferase (AL T/SGPT) Alkaline Phosphatase 75 Total Protein 5.6 L Albumin 2.5 L Globulin 3.10 Albumin/Globulin 0.80 Ratio Triglycerides Level 74 Cholesterol Level 60 L LDL Cholesterol, 26 Calculated HDL Cholesterol 19 L Cholesterol/HDL 3.1 Ratio Thyroid Stimulating 3.240 Hormone (TSH) Medications Medication Current Medications Vancomycin HCl (Vanco Iv Per Pharmacy) VANCOMYCIN PER PHARMACY PER PROTOCOL XX ; Start 01/30/19 at 12:00 Piperacillin Sod/ Tazobactam Sod 100 ml @ 200 mls/hr Q8 IVPB Last administered on 01/31/19at 13:09; Admin Dose 200 MLS/HR; Start 01/30/19 at 14:00 Pantoprazole (Protonix Tab) 40 mg DAILY PO Last administered on 01/31/19 09:17; Admin Dose 40 MG; Start 01/31/19 at 09:00 IV Flush (NS 3 ml) 3 ml PER PROTOCOL IV ; Start 01/30/19 at 12:00 Enoxaparin Sodium (Lovenox) 30 mg DAILY SC Last administered on 01/31/19 09:22; Admin Dose 30 MG; Start 01/31/19 at 09:00 Vancomycin HCl 1.25 gm/Sodium Chloride 250 ml @ 83.333 mls/ hr Q24H IVPB Last administered on 01/31/19 14:29; Admin Dose 83.333 MLS/HR; Start 01/31/19 at 13:00 Atropine Sulfate (Atropine (Syringe)) 0.4 mg Q15M PRN IV bradycardia < 30 BPM Last administered on 01/30/19at 16:33; Admin Dose 0.4 MG; Start 01/30/19 at 16:00 Hydralazine HCl (Apresoline) 10 mg Q4H PRN IV SBP>170 Last administered on 01/30/19 18:34; Admin Dose 10 MG; Start 01/30/19 at 17:30 Miscellaneous Information (Pending [facility] Order For Wound Care) This patient mccann... PRN PRN XX WOUND CARE; Start 01/30/19 at 18:30 Albuterol/ Ipratropium (Duoneb) 3 ml Q4H RESP THERAPY PRN HHN SHORTNESS OF BREATH Last administered on 01/30/19at 21:46; Admin Dose 3 ML; Start 01/30/19 at 21:00 ANISH CASEY Jan 31, 2019 17:29
--- NOTE | 2019-01-31 18:24 | RADRPT ---
Echocardiogram Report Patient Name: KATHRINE FREEMANPatient ID: [id number] : 1935 (83y 5m)Study Date: 01/31/2019 8:17:35 AM Gender: MAccession #: [id number] Tech: MI Location: Ref.Physician: RAUL DSOUZA Height(Cm): BSA: Weight(Kg): Quality: AdequateAccount #: Procedures: Echocardiographic Report: Transthoracic echocardiogram with complete 2D, M-Mode, and doppler examination. Indications: Bradycardia. Measurements: 2D/M Mode Doppler Measurement Value Normal Range Measurement Value Normal Range LVIDd 2D 4.8 [ 4.2 - 5.8 ] cm AV Peak Brandyn 1.9 [ 100.0 - 170.0 ] cm/sec LVIDs 2D 2.9 [ 2.5 - 4.0 ] cm AV Peak PG 14.0 [ 2.0 - 9.0 ] mmHg LVPWd 2D 1.2 [ 0.6 - 1.0 ] cm LVOT Peak Brandyn 1.4 [ 70.0 - 110.0 ] cm/sec IVSd 2D 1.0 [ 0.6 - 1.0 ] cm LVOT Peak PG 8.0 [ 2.0 - 6.0 ] mmHg IVS/LVPW 2D 0.9 ratio MV E Peak Brandyn 1.1 [ 60.0 - 130.0 ] cm/sec AoR Diam 2D 2.8 [ 2.6 - 3.4 ] cm MV A Peak Brandyn 1.2 [ 100.0 - 120.0 ] cm/sec LA/Ao 2D 1 ratio MV E/A 0.9 [ 0.8 - 1.5 ] ratio LA Dimen 2D 3.9 [ 3.0 - 4.0 ] cm MV Decel Time 317 [ 104 - 258 ] msec Lat E` Brandyn 0.1 [ 10.0 - 15.0 ] cm/sec MV E/A 0.9 [ 0.8 - 1.5 ] ratio TR Peak Brandyn 2.7 [ 100.0 - 280.0 ] cm/sec TR Peak PG 28.0 mmHg RVSP 31.0 [ 10.0 - 36.0 ] mmHg RA Pressure 3.0 mmHg Findings: Left Ventricle: Normal left ventricular systolic function. Normal left ventricular cavity size. Mild concentric left ventricular hypertrophy. Ejection fraction is visually estimated at 60 %. Abnormal Diastolic Function. Right Ventricle: Normal right ventricular size. Normal right ventricular systolic function. Left Atrium: The left atrium is normal in size. Right Atrium: The right atrium is normal in size. Mitral Valve: Mild mitral leaflet calcification. Moderate mitral annular calcification. Trace mitral regurgitation. Aortic Valve: No hemodynamically significant aortic stenosis by doppler. Aortic cusps appear mildly calcified. Mild aortic valve regurgitation. Tricuspid Valve: Normal appearance of the tricuspid valve. Estimated peak PA systolic pressure 31 mmHg. There is mild tricuspid regurgitation. Pulmonic Valve: Normal pulmonic valve appearance. Pericardium: Normal pericardium with no significant pericardial effusion. Aorta: Normal aortic root. IVC: Normal size and normal respiratory collapse consistent with normal right atrial pressure. Conclusions: Normal left ventricular systolic function. Normal left ventricular cavity size. Mild concentric left ventricular hypertrophy. Ejection fraction is visually estimated at 60 %. Abnormal Diastolic Function. Mild mitral leaflet calcification. Moderate mitral annular calcification. Trace mitral regurgitation. No hemodynamically significant aortic stenosis by doppler. Aortic cusps appear mildly calcified. Mild aortic valve regurgitation. Normal appearance of the tricuspid valve. Estimated peak PA systolic pressure 31 mmHg. There is mild tricuspid regurgitation. Electronically Signed By: Raul Dsouza 2019-01-31 18:23:49 PDT
--- NOTE | 2019-01-31 18:33 | RADRPT ---
Vent Rate: 81 bpm RR Interval: 0 msec LA Interval: 132 msec QRS Duration: 88 msec QT Interval: 400 msec QTC Interval: 464 msec P-R-T Steele: 62 - 36 - 67 degrees Sinus rhythm with premature supraventricular complexes with occasional premature ventricular complexes Otherwise normal ECG Electronically Signed By: Nomi Dsouza
[2019-01-31] MEDS: FUROSEMIDE 40 MG INJ IV SCH (19:15)
[2019-01-31] MEDS: BALSAM PERU/CASTOR OIL 60 GM TUBE TOP SCH (20:31)
[2019-01-31] MEDS: ALBUTEROL/IPRATROPIUM (NEB) 3 ML AMP HHN PRN (21:15)
[2019-02-01] VITALS (11 sets, daily range): BP systolic 116–188; BP diastolic 51–86; PULSE 52–92; RESP 16–19
[2019-02-01] MEDS: PIPER-TAZO 3.375 GM IV (PMX) 100 ML IVPB SCH ×3 (05:52→22:02)
[2019-02-01] MEDS: PANTOPRAZOLE (EC) 40 MG TAB PO SCH (08:54)
[2019-02-01] MEDS: FUROSEMIDE 40 MG INJ IV SCH (08:55)
[2019-02-01] MEDS: ENOXAPARIN 30 MG/0.3 ML SYG SC SCH (08:58)
[2019-02-01] MEDS: BALSAM PERU/CASTOR OIL 60 GM TUBE TOP SCH (09:00)
--- NOTE | 2019-02-01 09:12 | CONS ---
Consult Date/Type/Reason Admit Date/Time Jan 30, 2019 at 09:43 Initial Consult Date Requesting Provider: EDE MARTÍNEZ MD Date/Time of Note DATE: 02/01/19 TIME: 09:10 Subjective NO acute events - pt non-verbal. No CP nw - HR at 60s now - no class I indication for pacing. ROS: No fever, no chills, no nausea, no vomiting, no diarrhea/constipation - per nurse Objective Vitals Vital Signs Date Temp Pulse Resp B/P (MAP) Pulse Ox O2 O2 Flow FiO2 Time Delivery Rate 02/01/19 78 08:43 02/01/19 98.4 16 160/78 96 07:30 (105) 02/01/19 Nasal 4.0 04:56 Cannula Intake and Output 01/31/19 01/31/19 02/01/19 1515:00 23:00 07:00 IntakeIntake Total 100 ml OutputOutput Total 550 ml 2900 ml BalanceBalance 100 ml -550 ml -2900 ml Exam General: WN/WD/NAD, AOx comfortable HEENT: Unicetric/atraumatic/EOMI (does not follow commands) NECK: JVD elevated, no thyromegaly - NGT in Lymph: no lymphadenopathy HEART: regular with no S3, II/ systolic murmur at apex LUNGS: Coarse sounds ABD: soft, NT, ND, +BS : Intact Neuro: non focal SKIN: chronic changes EXT: trace edema Results/Medications Result Diagram: 02/01/19 0750 02/01/19 0750 Results 24 hrs Laboratory Tests Test 02/01/19 07:50 White Blood Count 10.9 H Red Blood Count 3.21 L Hemoglobin 8.9 L Hematocrit 29.6 L Mean Corpuscular Volume 92.2 Mean Corpuscular Hemoglobin 27.7 L Mean Corpuscular Hemoglobin Concent 30.1 L Red Cell Distribution Width 14.9 H Platelet Count 272 Mean Platelet Volume 11.7 H Immature Granulocytes % 0.400 Neutrophils % 71.5 Lymphocytes % 21.4 Monocytes % 5.6 Eosinophils % 0.7 Basophils % 0.4 Nucleated Red Blood Cells % 0.0 Immature Granulocytes # 0.040 H Neutrophils # 7.8 H Lymphocytes # 2.3 Monocytes # 0.6 Eosinophils # 0.1 Basophils # 0.0 Nucleated Red Blood Cells # 0.0 Sodium Level 148 H Potassium Level 3.6 Chloride Level 109 Carbon Dioxide Level 29 Anion Gap 10 # Blood Urea Nitrogen 21 H Creatinine 0.99 Est Glomerular Filtrat Rate mL/min Glucose Level 76 Calcium Level 8.6 Magnesium Level 2.0 Troponin I 0.079 Home Meds Reported Medications Hydralazine Hcl* (Hydralazine Hcl*) 10 Mg Tablet, 10 MG GTB Q6H PRN for HTN, #60 TAB 01/30/19 Nitroglycerin* (Nitrostat*) 0.4 Mg Tab.subl, 0.4 MG SL Q5MIN PRN for CHEST PAIN, BOTTLE 01/30/19 Albuterol Sulfate* (Albuterol Sulfate* Neb) 0.083%-3 Ml Neb, 2.5 MG NEB Q4H PRN for WHEEZING AND SOB, #30 VIAL 01/30/19 Nicotine* (Nicotine* Patch) Unknown Strength Patch, 1 PATCH TD DAILY, PATCH 14MG 01/30/19 Pantoprazole* (Protonix*) 40 Mg Tablet.dr, 40 MG GTB DAILY, TAB 01/30/19 Discontinued Reported Medications Metronidazole* (Metronidazole*) 500 Mg Tablet, 500 MG GTB Q8, TAB 01/30/19 Medications Current Medications Vancomycin HCl (Vanco Iv Per Pharmacy) VANCOMYCIN PER PHARMACY PER PROTOCOL XX ; Start 01/30/19 at 12:00 Piperacillin Sod/ Tazobactam Sod 100 ml @ 200 mls/hr Q8 IVPB Last administered on 02/01/19at 05:52; Admin Dose 200 MLS/HR; Start 01/30/19 at 14:00 Pantoprazole (Protonix Tab) 40 mg DAILY PO Last administered on 02/01/19at 08:54; Admin Dose 40 MG; Start 01/31/19 at 09:00 IV Flush (NS 3 ml) 3 ml PER PROTOCOL IV ; Start 01/30/19 at 12:00 Enoxaparin Sodium (Lovenox) 30 mg DAILY SC Last administered on 02/01/19at 08:58; Admin Dose 30 MG; Start 01/31/19 at 09:00 Vancomycin HCl 1.25 gm/Sodium Chloride 250 ml @ 83.333 mls/ hr Q24H IVPB Last administered on 01/31/19at 14:29; Admin Dose 83.333 MLS/HR; Start 01/31/19 at 13:00 Atropine Sulfate (Atropine (Syringe)) 0.4 mg Q15M PRN IV bradycardia < 30 BPM Last administered on 01/30/19at 16:33; Admin Dose 0.4 MG; Start 01/30/19 at 16:00 Hydralazine HCl (Apresoline) 10 mg Q4H PRN IV SBP>170 Last administered on 01/30/19at 18:34; Admin Dose 10 MG; Start 01/30/19 at 17:30 [facility]isc[facility] This patient mccann... PRN PRN XX WOUND CARE; Start 01/30/19 at 18:30 Albuterol/ Ipratropium (Duoneb) 3 ml Q4H RESP THERAPY PRN HHN SHORTNESS OF BREATH Last administered on 01/31/19at 21:15; Admin Dose 3 ML; Start 01/30/19 at 21:00 Furosemide (Lasix) 40 mg DAILY IV Last administered on 02/01/19at 08:55; Admin Dose 40 MG; Start 01/31/19 at 17:30 Assessment/Plan Hospital Course (Demo Recall) 1. Bradycardia with the recurrent episodes of sinus bradycardia in a patient with respiratory compromise. There is concern for primary pulmonary etiology to the patient's bradycardia with hypoxic events versus primary cardiac etiology such as this had to be sick sinus syndrome.- patient had some recurrent bardy when first arrived to tele floor overnight and now has nasal trumpet and has not had recurrent jaime since - HR stable - no Class I indication for pacer now. 2. Abnormal electrocardiogram to lateral Q's, assess for acute coronary syndrome.-neg trop x 3 3. Hypertension, currently controlled at this time, mildly - treated. 4. Altered mental state, status post encephalopathy - unchanged. 5. Baseline dementia. 6. Respiratory distress. 7. Pneumonia. 8. History of esophagitis from injury secondary to toxic ingestion - NGT in. 9. Hypernatremia. 10. Leukocytosis. 11. Anemia- H/H stable - no signs of bleeding now. WATSON MARTI MD Feb 01, 2019 09:12
[2019-02-01] MEDS: hydrALAzine 20 MG INJ IV PRN (12:16)
[2019-02-01] MEDS: VANCOMYCIN HCL 1.25 GM in SOD CHLORIDE 0.9% 250 ML IVPB SCH (14:08)
--- NOTE | 2019-02-01 15:41 | PN ---
Date/Time of Note Date/Time of Note DATE: 02/01/19 TIME: 15:39 Assessment/Plan VTE Prophylaxis Risk score (from Nsg)>0 risk: 10 SCD applied (from Nsg): Yes Pharmacological prophylaxis: LMWH Assessment/Plan Hospital Course 83 yo male with h/o severe dementia, recent accidental bleach ingestion for which he underwent a single esophageal dilations at [facility], recurrent aspiration for which he has been intubated twice at [facility], PEG tube who presents with acute respiratory failure from aspiration pneumonia Respiratory failure secondary to fluid overload and aspiration pneumonia - Respiratory status much improved with aggressive suctioning - Vanco/zosyn for sepsis and pneumonia, blood cultures pending - O2 as needed, ok on nasal cannula at this point. 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 - PEG tube feeds -Patient did have one session of esophageal dilation at [facility] was told that patient follow-up with community technical support intern for further dilations -Have consulted GI Prophylaxis: Lovenox Discharge: Family prefers not to return to prior intermediate, case finishing machine adjuster arranging for alternative Result Diagram: 02/01/19 0750 02/01/19 0750 Results 24hrs Laboratory Tests Test 02/01/19 07:50 White Blood Count 10.9 H Red Blood Count 3.21 L Hemoglobin 8.9 L Hematocrit 29.6 L Mean Corpuscular Volume 92.2 Mean Corpuscular Hemoglobin 27.7 L Mean Corpuscular Hemoglobin Concent 30.1 L Red Cell Distribution Width 14.9 H Platelet Count 272 Mean Platelet Volume 11.7 H Immature Granulocytes % 0.400 Neutrophils % 71.5 Lymphocytes % 21.4 Monocytes % 5.6 Eosinophils % 0.7 Basophils % 0.4 Nucleated Red Blood Cells % 0.0 Immature Granulocytes # 0.040 H Neutrophils # 7.8 H Lymphocytes # 2.3 Monocytes # 0.6 Eosinophils # 0.1 Basophils # 0.0 Nucleated Red Blood Cells # 0.0 Sodium Level 148 H Potassium Level 3.6 Chloride Level 109 Carbon Dioxide Level 29 Anion Gap 10 # Blood Urea Nitrogen 21 H Creatinine 0.99 Est Glomerular Filtrat Rate mL/min Glucose Level 76 Calcium Level 8.6 Magnesium Level 2.0 Troponin I 0.079 Subjective 24 Hr Interval Summary Subjective hx not possible: pt non-verbal Exam/Review of Systems Exam Vitals Vital Signs Date Temp Pulse Resp B/P (MAP) Pulse Ox O2 O2 Flow FiO2 Time Delivery Rate 02/01/19 98.2 54 16 116/51 92 15:29 (72) 02/01/19 Nasal 3.0 09:20 Cannula Intake and Output 01/31/19 01/31/19 02/01/19 1515:00 23:00 07:00 IntakeIntake Total 100 ml OutputOutput Total 550 ml 2900 ml BalanceBalance 100 ml -550 ml -2900 ml Constitutional: alert, non-verbal Respiratory: clear to auscultation Cardiovascular: regular rate and rhythm Gastrointestinal: soft; No distended Musculoskeletal: nl extremities to inspection Results Results 24hrs Laboratory Tests Test 02/01/19 07:50 White Blood Count 10.9 H Red Blood Count 3.21 L Hemoglobin 8.9 L Hematocrit 29.6 L Mean Corpuscular Volume 92.2 Mean Corpuscular Hemoglobin 27.7 L Mean Corpuscular Hemoglobin Concent 30.1 L Red Cell Distribution Width 14.9 H Platelet Count 272 Mean Platelet Volume 11.7 H Immature Granulocytes % 0.400 Neutrophils % 71.5 Lymphocytes % 21.4 Monocytes % 5.6 Eosinophils % 0.7 Basophils % 0.4 Nucleated Red Blood Cells % 0.0 Immature Granulocytes # 0.040 H Neutrophils # 7.8 H Lymphocytes # 2.3 Monocytes # 0.6 Eosinophils # 0.1 Basophils # 0.0 Nucleated Red Blood Cells # 0.0 Sodium Level 148 H Potassium Level 3.6 Chloride Level 109 Carbon Dioxide Level 29 Anion Gap 10 # Blood Urea Nitrogen 21 H Creatinine 0.99 Est Glomerular Filtrat Rate mL/min Glucose Level 76 Calcium Level 8.6 Magnesium Level 2.0 Troponin I 0.079 Medications Medication Current Medications Vancomycin HCl (Vanco Iv Per Pharmacy) VANCOMYCIN PER PHARMACY PER PROTOCOL XX ; Start 01/30/19 at 12:00 Piperacillin Sod/ Tazobactam Sod 100 ml @ 200 mls/hr Q8 IVPB Last administered on 02/01/19at 13:23; Admin Dose 200 MLS/HR; Start 01/30/19 at 14:00 Pantoprazole (Protonix Tab) 40 mg DAILY PO Last administered on 3/12/19at 08:54; Admin Dose 40 MG; Start 01/31/19 at 09:00 IV Flush (NS 3 ml) 3 ml PER PROTOCOL IV ; Start 01/30/19 at 12:00 Enoxaparin Sodium (Lovenox) 30 mg DAILY SC Last administered on 02/01/19 08:58; Admin Dose 30 MG; Start 01/31/19 at 09:00 Vancomycin HCl 1.25 gm/Sodium Chloride 250 ml @ 83.333 mls/ hr Q24H IVPB Last administered on 02/01/19 14:08; Admin Dose 83.333 MLS/HR; Start 01/31/19 at 13:00 Atropine Sulfate (Atropine (Syringe)) 0.4 mg Q15M PRN IV bradycardia < 30 BPM Last administered on 01/30/19 16:33; Admin Dose 0.4 MG; Start 01/30/19 at 16:00 Hydralazine HCl (Apresoline) 10 mg Q4H PRN IV SBP>170 Last administered on 02/01/19 12:16; Admin Dose 10 MG; Start 01/30/19 at 17:30 Miscellaneous Information ([facility]) This patient mccann... PRN PRN XX WOUND CARE; Start 01/30/19 at 18:30 Albuterol/ Ipratropium (Duoneb) 3 ml Q4H RESP THERAPY PRN HHN SHORTNESS OF BREATH Last administered on 01/31/19 21:15; Admin Dose 3 ML; Start 01/30/19 at 21:00 Furosemide (Lasix) 40 mg DAILY IV Last administered on 02/01/19 08:55; Admin Dose 40 MG; Start 01/31/19 at 17:30 Miscellaneous Information (*Rx Drug Level Order Reminder*) VANCO TROUGH @ 1,200 ON... ONCE ONCE XX ; Start 02/02/19 at 12:00; Stop 02/02/19 at 12:01 ANISH CASEY Feb 01, 2019 15:41
--- NOTE | 2019-02-01 17:30 | CONS ---
DATE OF ADMISSION: 01/30/2019 DATE OF CONSULTATION: TYPE OF CONSULTATION: Gastroenterology. Dear Dr. Casey and Dr. Chery: Thank you for asking me to see Mr. Mckeon in GI consultation. HISTORY OF PRESENT ILLNESS: The patient as you know is an 83-year-old [place] gentleman who is admi tted to the hospital because of pneumonia. He has got extensive history and in 11/2018, he happened to swallow bleach and endoscopy showed at the time multiple erosions. Subsequently, he underwent sev eral aspiration pneumonias. He had EGD and dilatation was performed in [facility] at one time. He also mccann d percutaneous endoscopic gastrostomy tube placement for feeding purposes. However, he continues to have gurgling respirations constantly, probably aspirating. He was intubated twice during his 3 hosp italizations in [facility] and [facility] and he was again admitted to this hospital because of h ypoxia. He is kind of lethargic. He is unable to give detailed history; however the daughter has provided th e rest of the history. He has history of pneumonia. He is on vancomycin and Zosyn. He is on oxygen cannula. PHYSICAL EXAMINATION: GENERAL: The patient is an 83-year-old [place] gentleman who at this time is alert but most of the time he goes into the lethargic phase. VITAL SIGNS: Include temperature 98, pulse is 54, respirations 16, blood pressure is 116/51. CARDIOVASCULAR: Normal heart sounds. RESPIRATORY: Occasional rales heard bilaterally. He does have gurgling sounds in the throat. ABDOMEN: Showed PEG in place. LABORATORY WORKUP: Shows hemoglobin of 8.9, hematocrit of 29.6, WBC is 10,900. The potassium is 3.6 . The ALT is 32, AST is 28. Amylase is normal. DIAGNOSTIC DATA: The chest x-ray shows evidence of patchy bibasilar infiltrates with small bilateral pleural effusion. CLINICAL IMPRESSION: The patient has dysphagia. He has history of swallowing of bleach in 11/2018. He developed esophageal stricture. He underwent a 2 or 3 endoscopies and dilatations in [facility] and [facility]. He ended up having percutaneous endoscopic gastrostomy tube. Currently, he see ms to have constant gurgling of the throat indicating he may be chronically aspirating. He may not b e able to swallow his own secretions, indicating that he has esophageal stricture. PLAN: At this time, Dr. Casey indicated that patient may be a good candidate for esophageal dilata tion. Upon discussion with the daughter, she is clear that we may hold off at this time the dilatati on because of the fact that he may end up having respiratory failure during the procedure, he may end up on a ventilator; however at this time she agreed that we will obtain a consultation from Dr. Ailyn ocampo and see if he would agree for the EGD and dilatation and accepting the fact that he may end into respiratory failure and he may end up on ventilator. Once again, doctor, thank you for this consultation. Dictated By: DENEEN HOSKINS/NTS Conf#: [id number] DID#: [id number] CC: EDE CHERY MD; ANISH CASEY MD;*EndCC*
[2019-02-02] VITALS (12 sets, daily range): BP systolic 160–177; BP diastolic 67–81; PULSE 67–100; RESP 16–18
[2019-02-02] MEDS: BALSAM PERU/CASTOR OIL 60 GM TUBE TOP SCH ×3 (00:43→21:00)
[2019-02-02] MEDS: PIPER-TAZO 3.375 GM IV (PMX) 100 ML IVPB SCH ×3 (05:33→20:59)
[2019-02-02] MEDS: hydrALAzine 20 MG INJ IV PRN (05:40)
[2019-02-02] MEDS: FUROSEMIDE 40 MG INJ IV SCH (08:47)
[2019-02-02] MEDS: PANTOPRAZOLE (EC) 40 MG TAB PO SCH (08:47)
[2019-02-02] MEDS: ENOXAPARIN 30 MG/0.3 ML SYG SC SCH (09:06)
[2019-02-02] MEDS: VANCOMYCIN HCL 1.25 GM in SOD CHLORIDE 0.9% 250 ML IVPB SCH (12:36)
--- NOTE | 2019-02-02 13:49 | CONS ---
Assessment/Plan Assessment/Plan Hospital Course (Demo Recall) IMPRESSION: 1. Bradycardia with the recurrent episodes of sinus bradycardia in a patient with respiratory compromise. There is concern for primary pulmonary etiology to the patient's bradycardia with hypoxic events versus primary cardiac etiology such as this had to be sick sinus syndrome.- patient had some recurrent bardy when first arrived to tele floor overnight and now has nasal trumpet and has not had recurrent jaime since 2. Abnormal electrocardiogram to lateral Q's, assess for acute coronary syndrome.-neg trop x 3. NL EF by echo 3. Hypertension, currently controlled at this time, mildly. 4. Altered mental state, status post encephalopathy. 5. Baseline dementia. 6. Respiratory distress. 7. Pneumonia. 8. History of esophagitis from injury secondary to toxic ingestion. 9. Hypernatremia. 10. Leukocytosis. 11. Anemia. Recc: -Tele -Follow rhythm/rate closely -no aleena agents -Follow resp status clsoely -Contineu abx's/bronchodilators -asp precautions/frequent pulmonary toilet -possible need for esophageal dilitation due to question chronic ASp? Consultation Date/Type/Reason Admit Date/Time Jan 30, 2019 at 09:43 Initial Consult Date 01/30/19 Type of Consult Cardiology Reason for Consultation bradycardia Requesting Provider: EDE MARTÍNEZ MD Date/Time of Note DATE: 02/02/19 TIME: 13:45 Exam/Review of Systems Vital Signs Vitals Vital Signs Date Temp Pulse Resp B/P (MAP) Pulse Ox O2 O2 Flow FiO2 Time Delivery Rate 02/02/19 100 13:33 02/02/19 99.2 17 177/71 91 11:18 (106) 02/02/19 Nasal 3.0 08:00 Cannula Intake and Output 02/01/19 02/01/19 02/02/19 1515:00 23:00 07:00 IntakeIntake Total 450 ml 880 ml OutputOutput Total 1500 ml 150 ml BalanceBalance -1050 ml 730 ml Exam Exam Review of Systems: CONSTITUTIONAL: No fevers, chills. PULMONARY: ongoing sob/gurgling CARDIOVASCULAR: No chest pain/palpitations GASTROINTESTINAL: No nausea/vomiting. GENITOURINARY: No hematuria/dysuria. MUSCULOSKELETAL: No myagias/arthalgias. PSYCHIATRIC: The patient denies depression. NEUROLOGIC: No weakness Constitutional: other (encephalopathic) Psych: no complaints Head: normocephalic ENMT: mucosa pink and moist Neck: supple, jvd ( 9cm water) Respiratory: diminished breath sounds Cardiovascular: regular rate and rhythm Gastrointestinal: soft, non-tender Musculoskeletal: muscle weakness (generalized) Extremities: edema (none) Neurological: other ( encephalopathic) Labs Result Diagram: 02/02/19 0647 02/02/19 0647 Results 24hrs Laboratory Tests Test 02/02/19 06:47 02/02/19 11:54 White Blood Count 15.9 #H Red Blood Count 3.56 L Hemoglobin 10.0 L Hematocrit 32.7 L Mean Corpuscular Volume 91.9 Mean Corpuscular Hemoglobin 28.1 L Mean Corpuscular Hemoglobin Concent 30.6 L Red Cell Distribution Width 14.8 H Platelet Count 313 Mean Platelet Volume 11.3 H Immature Granulocytes % 1.100 H Neutrophils % 71.8 Lymphocytes % 20.4 Monocytes % 5.9 Eosinophils % 0.5 Basophils % 0.3 Nucleated Red Blood Cells % 0.0 Immature Granulocytes # 0.170 H Neutrophils # 11.4 H Lymphocytes # 3.2 H Monocytes # 0.9 Eosinophils # 0.1 Basophils # 0.0 Nucleated Red Blood Cells # 0.0 Sodium Level 150 H Potassium Level 3.2 L Chloride Level 110 Carbon Dioxide Level 33 H Anion Gap 7 Blood Urea Nitrogen 29 H Creatinine 1.14 Est Glomerular Filtrat Rate mL/min Glucose Level 135 # Calcium Level 8.7 Vancomycin Level Trough 14.6 Medications Medications Current Medications Vancomycin HCl (Vanco Iv Per Pharmacy) VANCOMYCIN PER PHARMACY PER PROTOCOL XX ; Start 01/30/19 at 12:00 Piperacillin Sod/ Tazobactam Sod 100 ml @ 200 mls/hr Q8 IVPB Last administered on 02/02/19at 05:33; Admin Dose 200 MLS/HR; Start 01/30/19 at 14:00 Pantoprazole (Protonix Tab) 40 mg DAILY PO Last administered on 02/02/19at 08:47; Admin Dose 40 MG; Start 01/31/19 at 09:00 IV Flush (NS 3 ml) 3 ml PER PROTOCOL IV ; Start 01/30/19 at 12:00 Enoxaparin Sodium (Lovenox) 30 mg DAILY SC Last administered on 02/02/19at 09:06; Admin Dose 30 MG; Start 01/31/19 at 09:00 Vancomycin HCl 1.25 gm/Sodium Chloride 250 ml @ 83.333 mls/ hr Q24H IVPB Last administered on 02/02/19at 12:36; Admin Dose 83.333 MLS/HR; Start 01/31/19 at 13:00 Atropine Sulfate (Atropine (Syringe)) 0.4 mg Q15M PRN IV bradycardia < 30 BPM Last administered on 01/30/19at 16:33; Admin Dose 0.4 MG; Start 01/30/19 at 16:00 Hydralazine HCl (Apresoline) 10 mg Q4H PRN IV SBP>170 Last administered on 02/02/19at 05:40; Admin Dose 10 MG; Start 01/30/19 at 17:30 Miscellaneous Information (Pending [facility] Order For Wound Care) This patient mccann... PRN PRN XX WOUND CARE; Start 01/30/19 at 18:30 Albuterol/ Ipratropium (Duoneb) 3 ml Q4H RESP THERAPY PRN HHN SHORTNESS OF BREATH Last administered on 01/31/19at 21:15; Admin Dose 3 ML; Start 01/30/19 at 21:00 Furosemide (Lasix) 40 mg DAILY IV Last administered on 02/02/19at 08:47; Admin Dose 40 MG; Start 01/31/19 at 17:30 RAUL US Feb 02, 2019 13:48
--- NOTE | 2019-02-02 16:51 | DS ---
Date/Time of Note Date/Time of Note DATE: 02/02/19 TIME: 16:26 Discharge Summary Admission/Discharge Info Admit Date/Time Jan 30, 2019 at 09:43 Discharge Date/Time Hospital Course 83 yo male with h/o severe dementia, recent accidental bleach ingestion for which he underwent a single esophageal dilations at [facility] [place], recurrent aspiration for which he has been intubated twice at [facility], PEG tube who presents with acute respiratory failure from aspiration pneumonia Respiratory failure secondary to fluid overload and aspiration pneumonia - Respiratory status much improved with aggressive suctioning - Vanco/zosyn for sepsis and pneumonia, blood cultures pending - O2 as needed, ok on nasal cannula at this point. 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 - PEG tube feeds -Patient did have one session of esophageal dilation at [facility] [place] was told that patient follow-up with community machine whitener for further dilations -Have consulted GI Prophylaxis: Lovenox Discharge: Family prefers not to return to prior [facility], lining caser arranging for alternative Home Meds Reported Medications Hydralazine Hcl* (Hydralazine Hcl*) 10 Mg Tablet, 10 MG GTB Q6H PRN for HTN, #60 TAB 01/30/19 Nitroglycerin* (Nitrostat*) 0.4 Mg Tab.subl, 0.4 MG SL Q5MIN PRN for CHEST PAIN, BOTTLE 01/30/19 Albuterol Sulfate* (Albuterol Sulfate* Neb) 0.083%-3 Ml Neb, 2.5 MG NEB Q4H PRN for WHEEZING AND SOB, #30 VIAL 01/30/19 Nicotine* (Nicotine* Patch) Unknown Strength Patch, 1 PATCH TD DAILY, PATCH 14MG 01/30/19 Pantoprazole* (Protonix*) 40 Mg Tablet., 40 MG GTB DAILY, TAB 01/30/19 Discontinued Reported Medications Metronidazole* (Metronidazole*) 500 Mg Tablet, 500 MG GTB Q8, TAB 01/30/19 Primary Care Provider Not On Staff Doctor Pending Labs Laboratory Tests Test 02/02/19 06:47 02/02/19 11:54 White Blood Count 15.9 10^3/ul (4.8-10.8) Red Blood Count 3.56 10^6/ul (4.70-6.10) Hemoglobin 10.0 g/dl (14.0-18.0) Hematocrit 32.7 % (42.0-52.0) Mean Corpuscular Volume 91.9 fl (82.0-101.0) Mean Corpuscular Hemoglobin 28.1 pg (29.0-33.0) Mean Corpuscular 30.6 g/dl (32.0-37.0) Hemoglobin Concent Red Cell Distribution Width 14.8 % (11.5-14.5) Platelet Count 313 10^3/UL (140-415) Mean Platelet Volume 11.3 fl (7.4-10.4) Immature Granulocytes % 1.100 % (0.001-0.429) Neutrophils % 71.8 % (39.0-77.0) Lymphocytes % 20.4 % (15.0-51.0) Monocytes % 5.9 % (0.0-11.0) Eosinophils % 0.5 % (0.0-7.0) Basophils % 0.3 % (0.0-2.0) Nucleated Red Blood Cells % 0.0 /100WBC (0.0-0.0) Immature Granulocytes # 0.170 10^3/ul (0.0-0.031) Neutrophils # 11.4 10^3/ul (1.6-7.5) Lymphocytes # 3.2 10^3/ul (0.8-2.9) Monocytes # 0.9 10^3/ul (0.3-0.9) Eosinophils # 0.1 10^3/ul (0.0-0.5) Basophils # 0.0 10^3/ul (0.0-0.1) Nucleated Red Blood Cells # 0.0 10^3/ul (0.0-0.0) Sodium Level 150 mmol/L (135-144) Potassium Level 3.2 mmol/L (3.5-5.1) Chloride Level 110 mmol/L (97-110) Carbon Dioxide Level 33 mmol/L (21-31) Anion Gap 7 (5-13) Blood Urea Nitrogen 29 mg/dl (7-20) Creatinine 1.14 mg/dl (0.61-1.24) Est Glomerular Filtrat mL/min (>60) Rate mL/min Glucose Level 135 mg/dl (70-220) Calcium Level 8.7 mg/dl (8.4-10.2) Vancomycin Level Trough 14.6 ug/ml (10.0-20.0) ANISH CASEY Feb 02, 2019 16:51
--- NOTE | 2019-02-02 18:00 | DS ---
Date/Time of Note Date/Time of Note DATE: 02/02/19 TIME: 17:55 Discharge Summary Admission/Discharge Info Admit Date/Time Jan 30, 2019 at 09:43 Discharge Date/Time February 02, 2019 Discharge Diagnosis 83 yo male with h/o severe dementia, recent accidental bleach ingestion for which he underwent a single esophageal dilations at [facility], recurrent aspiration for which he has been intubated twice at [facility], PEG tube who presents with acute respiratory failure from aspiration pneumonia Respiratory failure secondary to fluid overload and aspiration pneumonia - Respiratory status much improved with aggressive suctioning -Zosyn for sepsis and pneumonia, blood cultures pending - O2 as needed, ok on nasal cannula at this point. 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 - PEG tube feeds -Patient did have one session of esophageal dilation at [facility] was told that patient follow-up with community die maker stamping for further dilations -GI consultation appreciated, at this point patient is at high risk for EGD h ence will defer at this time, patient is getting tube feeds and continues to have significant secretions nonetheless Diastolic heart failure -Echo shows preserved EF -Continue Lasix Patient Condition: Fair Hospital Course Patient is a 83 yo male with h/o severe dementia, recent accidental bleach ingestion for which he underwent a single esophageal dilations at [facility], recurrent aspiration for which he has been intubated twice at [facility], PEG tube who presents with acute respiratory failure from aspiration pneumonia. Patient is noted to have significant pulmonary secretions and patient is likely a silent aspirator. Patient was on broad-spectrum antibiotics with vancomycin and Zosyn, sputum culture did grow Pseudomonas and patient is to continue Zosyn. Echo showed a preserved EF, patient with diastolic heart failure and was started on Lasix. Patient was seen by GI to discuss potential esophageal dilation, patient is deemed a high risk for aspiration due to significant pulmonary secretions, patient is not currently eating and benefits of EGD and dilation are not outweighed by risks. Patient was seen by pulmonology and regulations is for transfer to [place]. On the day of discharge patient's vitals, labs and physical exam are stable. Home Meds Reported Medications Hydralazine Hcl* (Hydralazine Hcl*) 10 Mg Tablet, 10 MG GTB Q6H PRN for HTN, #60 TAB 01/30/19 Nitroglycerin* (Nitrostat*) 0.4 Mg Tab.subl, 0.4 MG SL Q5MIN PRN for CHEST PAIN, BOTTLE 01/30/19 Albuterol Sulfate* (Albuterol Sulfate* Neb) 0.083%-3 Ml Neb, 2.5 MG NEB Q4H PRN for WHEEZING AND SOB, #30 VIAL 01/30/19 Nicotine* (Nicotine* Patch) Unknown Strength Patch, 1 PATCH TD DAILY, PATCH 14MG 01/30/19 Pantoprazole* (Protonix*) 40 Mg Tablet.dr, 40 MG GTB DAILY, TAB 01/30/19 Discontinued Reported Medications Metronidazole* (Metronidazole*) 500 Mg Tablet, 500 MG GTB Q8, TAB 01/30/19 Follow-up Plan Follow-up with physicians at [place] Primary Care Provider Not On Staff Doctor Time spent on discharge: > 30 minutes ANISH CASEY Feb 02, 2019 18:00
[2019-02-02] MEDS ORDERED: POTASSIUM CHLORIDE (SR) 20 MEQ TAB PO STA (20:20)
== END 2019-02-02 23:20 | DRG 871 ==
LOC: E/R 08:03 → TEL 09:43
PROVIDERS: ADMIT Internal Medicine; ATTEND Internal Medicine
PROC: 5A09357 Assistance with Respiratory Ventilation, Less than 24 Consecutive Hours, Continuous Positive Airway Pressure (ICD-10-PCS; principal; 2019-01-30)
PROC: 3E0F7GC Introduction of Other Therapeutic Substance into Respiratory Tract, Via Natural or Artificial Opening (ICD-10-PCS; 2019-01-30)
DX: A41.9 Sepsis, unspecified organism (principal); J69.0 Pneumonitis due to inhalation of food and vomit; J96.01 Acute respiratory failure with hypoxia; E87.0 Hyperosmolality and hypernatremia; G93.40 Encephalopathy, unspecified; K22.2 Esophageal obstruction; Z93.1 Gastrostomy status; G30.9 Alzheimer's disease, unspecified; F02.80 Dementia in other diseases classified elsewhere, unspecified severity, without behavioral disturbance, psychotic disturbance, mood disturbance, and anxiety; R00.1 Bradycardia, unspecified; D64.9 Anemia, unspecified; R62.7 Adult failure to thrive; Z68.25 Body mass index [BMI] 25.0-25.9, adult; I25.10 Atherosclerotic heart disease of native coronary artery without angina pectoris; I10 Essential (primary) hypertension; N40.0 Benign prostatic hyperplasia without lower urinary tract symptoms; Z87.891 Personal history of nicotine dependence; B96.5 Pseudomonas (aeruginosa) (mallei) (pseudomallei) as the cause of diseases classified elsewhere
CPT/HCPCS: 36600; 71045; 80048; 80053; 80061; 80202; 81001; 81003; 82150; 82803; 83036; 83605; 83690; 83735; 83880; 84443; 84484; 85025; 85610; 85730; 87040; 87070; 87086; 87400; 89220; 92610; 93005; 93306; 94640; 94644; 94660; 94664; 96374; 97162; J0360; J0461; J1650; J1940; J2543; J3370; J7030; J7050

== ENCOUNTER 2019-02-15 13:29 | Day surgery (SDC) | payer MEDICARE, OTHER ==
[~2019-02-15] VITALS: Ht 185.4 cm; Wt 63.8 kg
[2019-02-15] VITALS (14 sets, daily range): BP systolic 109–192; BP diastolic 58–84; PULSE 64–78; RESP 16–23; Ht 185.4 cm; Wt 63.8 kg
[~2019-02-15 13:29] MED LIST: ALBU2.5V3 NEB; HYDR-3670 GTB; NICO-544 TD; NITR0.4T39 SL; PANT40TA3 GTB
--- NOTE | 2019-02-15 14:57 | PREAC ---
Date/Time of Note Date/Time of Note DATE: 02/15/19 TIME: 14:56 Anesthesia Eval and Record Evaluation Time Pre-Procedure Interview DATE: 02/15/19 TIME: 14:56 Age 83 Sex male NPO: 8 hrs Preoperative diagnosis esophageal stricture, dysphagia Planned procedure EGD Past Medical History Past Medical History: Includes Cardio: HTN, CAD (possible) Renal: CKD GI: Other (history of esophageal steele after swallowing drano per report ) Heme: Anemia Surgery & Anesthesia Issues No known issue Meds Anticoagulation: No Beta Aureliano within 24 hr: No Reason Beta Aureliano not given: Pt. not on B-Aureliano Reported Medications Hydralazine Hcl* (Hydralazine Hcl*) 10 Mg Tablet, 10 MG GTB Q6H PRN for HTN, #60 TAB 01/30/19 Nitroglycerin* (Nitrostat*) 0.4 Mg Tab.subl, 0.4 MG SL Q5MIN PRN for CHEST PAIN, BOTTLE 01/30/19 Albuterol Sulfate* (Albuterol Sulfate* Neb) 0.083%-3 Ml Neb, 2.5 MG NEB Q4H PRN for WHEEZING AND SOB, #30 VIAL 01/30/19 Nicotine* (Nicotine* Patch) Unknown Strength Patch, 1 PATCH TD DAILY, PATCH 14MG 01/30/19 Pantoprazole* (Protonix*) 40 Mg Tablet.dr, 40 MG GTB DAILY, TAB 01/30/19 Meds reviewed: Yes Allergies Coded Allergies: No Known Allergy (Unverified , 02/15/19) Allergies Reviewed: Yes Labs/Studies Labs Reviewed: Reviewed by anesthesiologist test: N/A Pre-procedure Exam Airway: Adequate mouth opening, Adequate thyromental dist Mallampati: Mallampati II Teeth: Normal Lung: Normal Heart: Normal ASA Physical Status ASA physical status: 3 Emergency: None Planned Anesthetic General/MAC: Mask Planned Pain Management Parenteral pain med Pre-operative Attestations Prior to commencing anesthesia and surgery, the patient was re-evaluated, there was verification of: *The patient's identity *The results of appropriate recent lab work and preoperative vital signs *The above evaluation not changing prior to induction *Anesthetic plan, risk benefits, alternative and complications discussed with patient/family; questions answered; patient/family understands, accepts and wishes to proceed. JACINDA HAWK MD Feb 15, 2019 14:57
[2019-02-15] MEDS ORDERED: PROPOFOL 20 ML ONE (15:09)
[2019-02-15] MEDS ORDERED: LIDOCAINE 2% (SDV) 5 ML INJ ONE (15:09)
[2019-02-15] MEDS ORDERED: ONDANSETRON 4 MG INJ IV PRN (15:30)
[2019-02-15] MEDS ORDERED: FENTAnyl 50 MCG/ML VIAL ONE (15:34)
[2019-02-15] MEDS ORDERED: ETOMIDATE 20 MG INJ ONE (15:34)
--- NOTE | 2019-02-15 15:49 | PAC ---
Date/Time of Note Date/Time of Note DATE: 02/15/19 TIME: 15:49 Post-Anesthesia Notes Post-Anesthesia Note Activity: WNL Respiratory function: WNL Cardiovascular function: WNL Mental status: Baseline Pain reasonably controlled: Yes Hydration appropriate: Yes Nausea/Vomiting absent: Yes Comments BP: 140/79 HR: 86 RR; 15 T: 98 SaO2: 99% JACINDA HAWK MD Feb 15, 2019 15:49
[2019-02-15] MEDS ORDERED: LACTATED RINGER'S 500 ML IV SCH (17:00)
--- NOTE | 2019-02-16 03:30 | GILP ---
DATE OF PROCEDURE: 02/15/2019 PROCEDURE PERFORMED: Esophagogastroduodenoscopy. 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 The patient cannot swallow any food; hence, at this time, procedure is performed to diagnose and do the dilatation. POSTOPERATIVE DIAGNOSES: Multiple esophageal strictures. Upper esophageal sphincter was dilated with the scope. The lower esophageal sphincter could not be d ilated because it is a pinhole tight stricture. DESCRIPTION OF PROCEDURE: After the informed written consent was obtained, the patient was asked to lie on the left lateral side. Intravenous anesthesia was given by anesthesiologist, Dr. Foote. When the patient became somnolent, the Olympus video upper endoscope was inserted into the oropharynx, the n into the esophagus. The upper esophagus showed evidence of a stricture; however, this is not too t ight. With the help of the scope, this stricture was negotiated and advanced beyond the stricture; h owever, there is evidence of a pinhole type of esophageal stricture in the lower part of the esophagu s and patient is not very stable for this dilatation at this time. Hence, I removed the scope and th e procedure was completed at this time. PLAN: I recommend a repeat EGD when the patient is intubated under fluoroscopy. There other strictu re needs to be dilated. Dictated By: DENEEN HARRINGTON MD NC/NTS Conf#: [id number] DID#: [id number] CC: TOÑA BOYLE MD;*EndCC*
== END 2019-02-15 16:36 | disposition home or self-care (01) ==
LOC: GIL 13:29
PROVIDERS: ATTEND Internal Medicine Gastroenterology
DX: K22.2 Esophageal obstruction (principal)
CPT/HCPCS: 43249; J3010; J7120